=== PATIENT | male | born 1995 | race African-American/Black ===

== ENCOUNTER 2020-12-07 19:15 | Emergency (ER) | payer SELFPAY ==
[2020-12-07 19:19] VITALS: BP 167/91; PULSE 85; RESP 16; TEMP 36.6; O2SAT 100; BMI 43.5
--- NOTE | 2020-12-07 19:37 | EKG12_ITS ---
Test Reason : SYNCOPE Blood Pressure : / mmHG Vent. Rate : 073 BPM Atrial Rate : 073 BPM P-R Int : 160 ms QRS Dur : 100 ms QT Int : 368 ms P-R-T Axes : 020 067 015 degrees QTc Int : 405 ms Normal sinus rhythm Normal ECG Confirmed by KETAN KLINE, LATONIA ([id number]), news editor TALI COOMBS ([id number]) on 12/12/2020 9:10:41 AM Referred By: NEENA Confirmed By:NICOLASA ACEVES MD
--- NOTE | 2020-12-07 19:37 | CT_ITS ---
STUDY: CT BRAIN WITHOUT CONTRAST REASON FOR EXAM: Male, 25 years old. Syncope. RADIATION DOSAGE (If Supplied By Facility): CTDIvol = ( 44.99 ) mGy, DLP = ( 812.98 ) mGycm TECHNIQUE: Transaxial CT imaging of the brain was performed without administration of intravenous contrast material. Individualized dose optimization techniques were used for this CT. COMPARISON: No relevant priors. FINDINGS: Normal soft tissue structures. Normal calvarium. Normal size ventricles and extra-axial spaces for the patient''s age. Normal white matter tracts of the cerebral hemispheres. Normal basal ganglia and thalami. Normal brainstem. Normal cerebellum. There is no intracranial hemorrhage. There are no findings of an acute ischemic infarction. Opacification of the right maxillary sinus. CT/Brain/Head without Contrast IMPRESSION: 1. Normal unenhanced CT scan of the brain. 2. Right maxillary sinusitis. Electronically Signed: Deyvi Hearn DO at 20:30 EDT Tel [phone], Service support ,
--- NOTE | 2020-12-07 19:38 | ED.VISSUMM ---
- ER Visit Summary Date of Service: 12/07/20 Chief Complaint: [Syncope] History of Present Illness: The patient is a 25 M [presents to the emergency department complaint of a syncopal episode that occurred this evening. Patient states that he was relaxing in his bedroom playing video games and then decided to go take a shower. Patient states that while in the shower he started feeling lightheaded and dizzy. Patient was able to get out of the shower and get dressed and then started walking back to where his family was and remembers feeling dizzy and leaning against the wall. Family members called to him but he really would not respond and then eventually passed out against the wall and hit his head on a door frame. Patient apparently was unconscious per for 5 to 10 minutes. Patient at one point had about 2-minute episode of shaking and twitching his whole body. Patient also vomited x1. Patient has no history of seizures. States that has been under a lot of stress here lately and has been very stressed today. Patient states that he cheated on his and he feels guilty about that and his is also been having miscarriages. Patient otherwise has history of depression and anxiety and history of a heart murmur since he was a child. Patient denies losing control of bowel or bladder during this event. Denies biting his lip or tongue.] Physical Examination: [HEENT-PERRLA, EOMI. Cranial nerves II through XII grossly intact. TMs clear. Mucous membranes moist. No adenopathy. No external evidence of trauma to his head. No C-spine tenderness on palpation. Cardiovascular-regular rate and rhythm without murmur or ectopy Lungs-clear to auscultation, chest wall stable without crepitus or subcu emphysema Abdomen-normoactive bowel sounds, soft, nontender, no rebound or rigidity, no peritoneal signs. Neuro dacj-rhctmu-kmra and heel gutierrez testing within normal limits, negative Romberg, negative pronator drift, fundi benign Extremities-intact ?4, normal range of motion, normal pulses, atraumatic] Test Results: [EKG obtained on arrival shows sinus rhythm with a ventricular rate of 73 bpm with no acute ST segment changes. CBC with it was normal. Chemistries unremarkable. BUN was 12 and creatinine 1.56. Alcohol was negative at 3.0. Toxicology screen was positive for marijuana. Patient states that he last smoked marijuana earlier this morning. ET scan of the brain without contrast showed some right maxillary sinusitis otherwise nothing acute.] Orthostatic vital signs were negative. Emergency Department Course and Treatment: [ Established on arrival. Patient placed on a site monitor. It was noted that his blood pressures tended to be on the high side especially the diastolic with his last systolic being only in the 140s but his diastolic was right around 100.] Treatment Plan: [Patient advised to keep a journal of his blood pressures over the next week. He will be referred to primary care physician strategic planning consultant for no doc. At this point am not convinced patient had seizure but I suspect likely a vasovagal event.] Also discussed following up with primary care physician regarding renal insufficiency given his young age and his elevated blood pressure will need to be monitored further. Disposition: [Discharged home in stable condition] Impression: [Vasovagal syncope Hypertension-to be established] Renal insufficiency This note was generated with [employer] dictation software. It may contain incorrect words, spelling, and punctuation that were not noted in review of the chart prior to signing ED Disposition - Plan for ED Patient: Instructions: ED Fainting, Vagal Reaction, ED Fainting, Uncertain Cause Referrals: Didier Del Rosario III, MD [STAFF PHYSICIAN] - 5-7 Days Care Physician,No Primary [Primary Care Provider] -
[2020-12-07 20:10] LABS: White Blood Count 8.1 K/mm3 (4.4-11.0)
[2020-12-07] MEDS: 0.9% Normal Saline 1,000 ML 150 ML IV (20:10)
[2020-12-07 20:11] LABS: Absolute Lymphocyte Count 2.31 X10^3/uL (0.83-4.51); Absolute Neutrophil Count 4.3 X10^3/uL (2.0-7.7); Basophil# 0.05 X10^3/uL; Basophil% 0.6 % (0-1); Eosinophil# 0.65 X10^3/uL; Eosinophils% 8.1 % (0-5); Hematocrit 45.4 % (40-54); Hemoglobin 15.1 g/dL (13.0-16.5); Lymphocyte # 2.31 X10^3/ul (0.83-4.51); Lymphocyte % 28.7 % (19-41); Mean Corp Hgb Conc 33.3 g/dL (32-36); Mean Corpuscular Hgb 29.4 pg (27.0-32.0); Mean Corpuscular Volume 88.3 fL (80-94); Mean Platelet Vol. 11.6 fl (6.2-12.0); Monocyte# 0.75 X10^3/uL; Monocyte% 9.3 % (0-10); NRBC Flagged by Analyzer 0 % (0-5); Neutrophil # 4.25 X10^3/uL (2.7-7.7); Neutrophil % 52.8 % (47-70); POSITIVE MORPHOLOGY YES; Platelet Count 335 K/mm3 (150-450); RBC Distribution Width CV 13.7 % (11.6-14.6); Red Blood Count 5.14 M/mm3 (4.6-6.2)
[2020-12-07 20:21] LABS: Anion Gap 5 (5-15); BUN 12 mg/dL (7-18); BUN/Creat Ratio 7.7 RATIO (10-20); Chloride 109 mmol/L (98-107); Creatinine, Serum 1.56 mg/dL (0.70-1.30); EST Glomerular Filtration Rate 58 mL/min (>60); Est Glom Filt Rate - Afr Amer 70 mL/min (>60); Estimated Creatinine Clearance 79.45 ml/min; Glucose 135 mg/dL (74-106); Potassium 4.7 mmol/L (3.5-5.1); Sodium Level 139 mmol/L (136-145)
[2020-12-07 20:25] VITALS: PULSE 75; RESP 14; O2SAT 98
[2020-12-07 20:29] VITALS: BP 179/104; BP 187/87; PULSE 76; PULSE 96
[2020-12-07 20:30] LABS: Differential Indicated SCAN CRITERIA MET
[2020-12-07 20:32] LABS: Platelet Estimate ADEQUATE (ADEQ)
[2020-12-07 20:33] LABS: Anisocytosis RARE; Red Cell Morphology N CHROM NORMAL (NORM C&C)
[2020-12-07 21:43] LABS: Amphetamine Urine VISTA NEGATIVE (<1000 ng/mL); Barbiturate Urine VISTA NEGATIVE (< 200 ng/mL); Benzodiazepine Urine VISTA NEGATIVE (< 200 ng/mL); Cocaine Urine VISTA NEGATIVE (< 300 ng/mL); Ecstacy Urine VISTA NEGATIVE (< 500 ng/mL); Methadone Urine VISTA NEGATIVE (< 300 ng/mL); PCP Urine VISTA NEGATIVE (< 25 ng/mL); THC Urine VISTA POSITIVE (< 50 ng/mL); Vista UDS pH Range 5
--- NOTE | 2020-12-07 21:58 | ED.DEP ---
ED Disposition - Plan for ED Patient: Instructions: ED Fainting, Uncertain Cause, ED Fainting, Vagal Reaction Referrals: Care Physician,No Primary [Primary Care Provider] - Didier Del Rosario III, MD [STAFF PHYSICIAN] - 5-7 Days
[2020-12-07 22:02] VITALS: BP 141/102; PULSE 76; PULSE 85; RESP 16; O2SAT 98; O2SAT 99
== END 2020-12-07 22:09 | disposition home or self-care (01) ==
LOC: ED 19:59
PROVIDERS: Emergency Provider Emergency Medicine
DX: R55 Syncope and collapse (principal); N28.9 Disorder of kidney and ureter, unspecified; R03.0 Elevated blood-pressure reading, without diagnosis of hypertension; F41.9 Anxiety disorder, unspecified; F32.9 Major depressive disorder, single episode, unspecified; Z79.899 Other long term (current) drug therapy
CPT/HCPCS: 70450; 80048; 80307; 82077; 85025; 93005; 96360; 96361; 99285; J7030